=== PATIENT | female | born 1945 | race African-American/Black ===

== ENCOUNTER 2024-07-02 17:30 | Emergency (ER) | payer MEDICARE ==
[~2024-07-02] VITALS: Ht 152.4 cm; Wt 79.4 kg
[2024-07-02 17:35] VITALS: PULSE 86; RESP 20; TEMP 97.7; O2SAT 96
[2024-07-02] MEDS ORDERED: LIDOCAINE HCL 1% 30ML-PF VIAL ONE (18:09)
[2024-07-02] MEDS: LIDOCAINE HCL 1% LOCAL INJ 20 ML VIAL INJ ONE (18:28)
[2024-07-02] MEDS ORDERED: CEPHALEXIN500 MG PO (18:37)
[2024-07-02] MEDS: TETANUS/DIPHTHERIA TOX ADULT 0.5 ML SYR IM ONE (18:42)
== END 2024-07-02 18:46 | disposition home or self-care (01) ==
LOC: FSED 17:34
DX: S60.444A External constriction of right ring finger, initial encounter (principal); W49.04XA Ring or other jewelry causing external constriction, initial encounter; Y92.89 Other specified places as the place of occurrence of the external cause
CPT/HCPCS: 90471; 90714; 99284; J2003